=== PATIENT | male | born 1985 | race Hispanic/Latino ===

== ENCOUNTER → 2020-05-01 | Outpatient (CLI) | payer OTHER ==
[~2020-05-01] MED LIST: BUPIVACAINE HCL 0.5% INJ 30 ML VIAL INJ ONE; COVID-19 VACC, MRNA(MODERNA)/PF 100 MCG/0.5 ML VIAL IM ONE; HEPARIN SOD (PORCINE) 5,000 UNIT/ML VIAL ONE; SODIUM CHLORIDE 0.9% 500ML 0 ML ONE; THROMBIN FOR SOLN 5,000 UNIT VIAL ONE
== END ==
LOC: VACCPMC 18:30
DX: Z23 Encounter for immunization (principal); Z20.822 Contact with and (suspected) exposure to COVID-19

== ENCOUNTER → 2020-06-04 | Outpatient (CLI) | payer OTHER ==
[~2020-06-04] MED LIST changes: -BUPIVACAINE HCL 0.5% INJ 30 ML VIAL INJ ONE; -HEPARIN SOD (PORCINE) 5,000 UNIT/ML VIAL ONE; -SODIUM CHLORIDE 0.9% 500ML 0 ML ONE; -THROMBIN FOR SOLN 5,000 UNIT VIAL ONE
== END | DRG 951 ==
LOC: VACCPMC 10:51
DX: Z23 Encounter for immunization (principal); Z20.822 Contact with and (suspected) exposure to COVID-19
CPT/HCPCS: 0012A; 91301